=== PATIENT | male | born 1975 | race African-American/Black ===

== ENCOUNTER 2017-03-19 14:25 | Outpatient (CLI) | payer OTHER ==
--- NOTE | 2017-03-19 16:23 | RAD ---
RIGHT KNEE FOUR VIEWS: History: Right knee pain. FINDINGS: Joint spaces are preserved. There is no acute fracture, dislocation, or fluid distention of the supr apatella bursa evident. IMPRESSION: No acute osseous abnormalities are demonstrated. POS: [facility]
== END 2017-03-19 14:26 | disposition home or self-care (01) ==
LOC: MADRAD 14:25
PROVIDERS: ATTEND Family Medicine
DX: M25.561 Pain in right knee (principal)

== ENCOUNTER 2017-08-23 07:12 | Emergency (ER) | payer OTHER ==
[2017-08-23] MEDS ORDERED: Naproxen 500 MG TAB ONE (08:06)
--- NOTE | 2017-08-23 08:19 | RAD ---
LEFT FOOT THREE VIEWS: INDICATIONS: Pain. Twisting injury. FINDINGS: Lisfranc joint is maintained. No fracture or dislocation. IMPRESSION: No acute fracture, left foot. POS: [facility]
--- NOTE | 2017-08-23 08:22 | RAD ---
THREE VIEW LEFT ANKLE: INDICATIONS: Left ankle inversion with pain. Twisting injury. FINDINGS: The mortise is intact. No fracture or dislocation. There is soft tissue prominence. Correlate cli nically. IMPRESSION: No acute fracture. POS: [facility]
== END 2017-08-23 08:17 | disposition home or self-care (01) ==
LOC: MADERS 07:12
DX: S93.402A Sprain of unspecified ligament of left ankle, initial encounter (principal); I10 Essential (primary) hypertension; F17.210 Nicotine dependence, cigarettes, uncomplicated

== ENCOUNTER 2019-10-27 20:49 | Emergency (ER) | payer OTHER ==
[2019-10-27 21:35] LABS: ALT (SGPT) 23 U/L (8-55); AST (SGOT) 22 U/L (5-34); Albumin 4.3 g/dL (3.5-5.0); Alkaline Phosphatase 76 U/L (40-110); Anion Gap 14 mmol/L (10-20); BUN (Urea Nitrogen) 13 mg/dL (8.9-20.6); Bilirubin, Total 0.5 mg/dL (0.2-1.2); Calc. Creatinine Clearance 0 mL/min (70-130); Calcium 10.2 mg/dL (7.8-10.44); Carbon Dioxide 29 mmol/L (22-29); Chloride 103 mmol/L (98-107); Estimated GFR-MDRD 89; Globulin 3.9 g/dL (2.4-3.5); Glucose 150 mg/dL (70-105); Potassium 3.7 mmol/L (3.5-5.1); Protein, Total 8.2 g/dL (6.0-8.3); Sodium 142 mmol/L (136-145)
--- NOTE | 2019-10-27 21:36 | RAD ---
EXAM: CHEST ONE VIEW HISTORY: Chest pain for 3 hours involving right side. COMPARISON: None FINDINGS: Cardiac silhouette is magnified by projection but does appear at the upper limits of normal to border line enlarged. The pulmonary vasculature is within normal limits. The lungs are clear. The osseous structures are intact. IMPRESSION: 1. No acute cardiopulmonary process. 2. Upper limits of normal to borderline cardiomegaly.
[2019-10-27 21:37] LABS: CKMB 1.1 ng/mL (0-6.6)
[2019-10-27 21:46] LABS: #Basophils 0.2 thou/uL (0.0-0.2); #Eosinphils 0.1 thou/uL (0.0-0.7); #Lymphocytes 2.7 thou/uL (1.20-3.40); #Neutrophils 9.8 thou/uL (1.40-6.50); %Basophils 1.3 % (0.0-1.0); %Eosinophils 0.8 % (0.0-10.0); %Lymphocytes 19.5 % (21.0-51.0); %Monocytes 7.4 % (0.0-10.0); Band 1 % (5-11); Hemoglobin 14.8 g/dL (14.0-18.0); Hypochromia SLIGHT = 6-15 cells (100X) (0-5/hpf); Lymphocytes 17 % (21-51); MDiff Complete? YES; Mean Corpuscular HGB CONC 29.1 g/dL (32.0-36.0); Mean Corpuscular Hemoglobin 25.6 pg (27.0-31.0); Mean Corpuscular Volume 87.8 fL (78.0-98.0); Mean Platelet Volume 8.2 fL (7.4-10.4); Monocytes 5 % (0-10); Neutrophil 77 % (42-75); Platelet Count 385 thou/uL (130-400); RBC Distribution Width 11.7 % (11.5-14.5); Red Blood Cell (RBC) Count 5.77 mill/uL (4.70-6.10); White Blood Cell (WBC) Count 13.8 thou/uL (4.8-10.8)
[2019-10-27] MEDS ORDERED: Hydrochlorothiazide 25 MG TAB ONE (22:55)
== END 2019-10-27 23:15 | disposition home or self-care (01) ==
LOC: MADERS 20:49
DX: I10 Essential (primary) hypertension (principal); R07.89 Other chest pain; F17.210 Nicotine dependence, cigarettes, uncomplicated
CPT/HCPCS: 71045; 80053; 82553; 83880; 84484; 85025; 85379; 93005